=== PATIENT | female | born 1970 | race Caucasian/White ===

== ENCOUNTER → 2017-06-26 | Outpatient (CLI) | payer OTHER | LOC: M OUTALCOH 08:01 | DX: F10.20 Alcohol dependence, uncomplicated (principal) ==

== ENCOUNTER 2017-07-05 14:47 | Outpatient (RCR) | payer OTHER | END 2017-07-24 | LOC: M OUTALCOH 07-23 16:00 | DX: F10.20 Alcohol dependence, uncomplicated (principal) ==

== ENCOUNTER 2017-07-25 14:21 | Outpatient (RCR) | payer OTHER | END 2017-08-24 | LOC: M OUTALCOH 07-30 16:00 | DX: F10.20 Alcohol dependence, uncomplicated (principal) | CPT/HCPCS: 90834 ==

== ENCOUNTER 2017-08-27 16:00 | Outpatient (RCR) | payer OTHER | END 2017-09-23 | LOC: M OUTALCOH 16:00 | DX: F10.20 Alcohol dependence, uncomplicated (principal) ==

== ENCOUNTER 2017-09-30 15:54 | Outpatient (RCR) | payer OTHER | END 2017-10-24 | LOC: M OUTALCOH 10-07 16:00 | DX: F10.20 Alcohol dependence, uncomplicated (principal) ==

== ENCOUNTER 2017-11-04 11:22 | Outpatient (RCR) | payer OTHER | END 2017-11-23 | LOC: M OUTALCOH 11-11 16:00 | DX: F10.20 Alcohol dependence, uncomplicated (principal) | CPT/HCPCS: 90834 ==

== ENCOUNTER → 2020-03-28 | Outpatient (CLI) | payer OTHER ==
[~2020-03-28] MED LIST: LEVO25TABR PO; MELO7.5T3 PO; MULTLIQ7 PO
[2020-03-28 13:06] LABS: HEMATOCRIT 33.3 % (36.0-47.0); HEMOGLOBIN 9.9 g/dl (12.0-15.5); MEAN CORPUSCULAR HEMOGLOBIN 25.6 pg (27.0-33.0); MEAN CORPUSCULAR HGB CONC 29.7 g/dl (32.0-36.5); MEAN CORPUSCULAR VOLUME 86.3 fl (80.0-96.0); PLATELET COUNT, AUTOMATED 263 10^3/uL (150-450); RED BLOOD COUNT 3.86 10^6/uL (4.00-5.40); WHITE BLOOD COUNT 4.8 10^3/uL (4.0-10.0)
[2020-03-28 18:11] LABS: ALBUMIN 3.6 GM/DL (3.2-5.2); ALT/SGPT 19 U/L (12-78); BILIRUBIN,TOTAL 0.5 MG/DL (0.2-1.0); BLOOD UREA NITROGEN 8 MG/DL (7-18); CALCIUM LEVEL 8.3 MG/DL (8.5-10.1); CARBON DIOXIDE LEVEL 27 MEQ/L (21-32); CHLORIDE LEVEL 108 MEQ/L (98-107); CREATININE FOR GFR 0.59 MG/DL (0.55-1.30); GLOMERULAR FILTRATION RATE > 60.0 (>58); GLUCOSE, FASTING 87 MG/DL (70-100); POTASSIUM SERUM 4.5 MEQ/L (3.5-5.1); SODIUM LEVEL 139 MEQ/L (136-145)
== END ==
LOC: M PLALAB 10:03
PROVIDERS: ATTEND Internal Medicine
DX: E03.9 Hypothyroidism, unspecified (principal)

== ENCOUNTER → 2022-05-30 | Outpatient (CLI) | payer OTHER ==
[~2022-05-30] MED LIST changes: +LEVO2TA PO; +MELO15TA28 PO; +SYNT25TA PO
[2022-05-30 10:46] LABS: BASO % 0.3 % (0.0-1.0); EOS # 0.1 10^3/uL (0.0-0.5); HEMATOCRIT 41.7 % (36.0-47.0); HEMOGLOBIN 13.7 g/dl (12.0-15.5); LYMPH # 1.1 10^3/uL (1.5-5.0); LYMPH % 16.6 % (24.0-44.0); MEAN CORPUSCULAR HEMOGLOBIN 31.7 pg (27.0-33.0); MEAN CORPUSCULAR HGB CONC 32.9 g/dl (32.0-36.5); MEAN CORPUSCULAR VOLUME 96.5 fl (80.0-96.0); MONO # 0.5 10^3/uL (0.0-0.8); MONO % 7.5 % (2.0-8.0); NEUTROPHILS # 4.7 10^3/uL (1.5-8.5); NEUTROPHILS % 73.4 % (36.0-66.0); PLATELET COUNT, AUTOMATED 226 10^3/uL (150-450); RED BLOOD COUNT 4.32 10^6/uL (4.00-5.40); WHITE BLOOD COUNT 6.4 10^3/uL (4.0-10.0)
[2022-05-30 11:13] LABS: BLOOD UREA NITROGEN 15 MG/DL (9-23); CALCIUM LEVEL 8.9 MG/DL (8.5-10.1); CARBON DIOXIDE LEVEL 24 MMOL/L (20-31); CHLORIDE LEVEL 105 MMOL/L (98-107); CREATININE FOR GFR 0.56 MG/DL (0.55-1.30); GLOMERULAR FILTRATION RATE > 60.0 (>51); GLUCOSE, FASTING 97 MG/DL (60-100); POTASSIUM SERUM 4.5 MMOL/L (3.5-5.1); SODIUM LEVEL 140 MMOL/L (136-145)
== END ==
LOC: M EKG 10:02
PROVIDERS: ATTEND Podiatrist
DX: M76.61 Achilles tendinitis, right leg (principal)

== ENCOUNTER → 2022-06-11 | Outpatient (CLI) | payer OTHER | LOC: M LABSMTC 09:16 | PROVIDERS: ATTEND Anesthesiology | DX: Z01.812 Encounter for preprocedural laboratory examination (principal); Z11.52 Encounter for screening for COVID-19 ==

== ENCOUNTER 2022-06-15 11:19 | Day surgery (SDC) | payer OTHER ==
[~2022-06-15] VITALS: Ht 167.6 cm; Wt 121.3 kg
[~2022-06-15 11:19] MED LIST changes: +ceFAZolin SOD 1 GM in D5W MINI-BAG PLUS 50 ML IV ONE; +ceFAZolin SOD 2 GM in IV 1 EA IV ONE
[2022-06-15] MEDS ORDERED: GENTAMICIN SULF 80MG/2ML VIAL As Ordered ONE (12:25)
[2022-06-15] MEDS ORDERED: LIDOCAINE 2% MDV 20ML VIAL As Ordered ONE (12:25)
[2022-06-15] MEDS ORDERED: BUPIVACAINE HCL 0.5% 30ML VIAL As Ordered ONE (12:25)
[2022-06-15] MEDS ORDERED: LR 1,000 ML IV SCH ×2 (12:30→15:10)
[2022-06-15 12:47] LABS: HCG, SERUM QUALITATIVE NEGATIVE (NEGATIVE)
[2022-06-15] MEDS ORDERED: fentaNYL 100 MCG/2 ML INJECTION As Ordered ONE (13:43)
[2022-06-15] MEDS ORDERED: ROCURONIUM BROMIDE 50MG/5ML VIAL As Ordered ONE ×2 (13:43→13:44)
[2022-06-15] MEDS ORDERED: LIDOCAINE 2% 100MG/5ML SDV (FOR ANES.) As Ordered ONE (13:43)
[2022-06-15] MEDS ORDERED: propofoL 200 MG/20 ML VIAL As Ordered ONE (13:43)
[2022-06-15] MEDS ORDERED: ONDANSETRON 4MG 2ML VIAL As Ordered ONE (13:43)
[2022-06-15] MEDS ORDERED: MIDAZOLAM INJ 2MG/2ML VIAL As Ordered ONE (13:43)
[2022-06-15] MEDS ORDERED: SUGAMMADEX SODIUM 500 MG/5 ML VIAL (BRIDION) As Ordered ONE (13:44)
[2022-06-15] MEDS ORDERED: ACETAMINOPHEN 1000MG 100ML IV BAG As Ordered ONE (14:20)
[2022-06-15] MEDS ORDERED: MEPERIDINE INJ 25 MG/ML VIAL IV PRN (15:10)
[2022-06-15] MEDS ORDERED: PERCOCET 5MG/325MG TAB PO PRN (15:10)
[2022-06-15] MEDS ORDERED: fentaNYL 100 MCG/2 ML INJECTION IV PRN (15:10)
[2022-06-15] MEDS ORDERED: HYDROMORPHONE HCL 0.5 MG/ 0.5 ML SYRINGE IV PRN ×2 (15:10→15:15)
[2022-06-15] MEDS ORDERED: ONDANSETRON 4MG 2ML VIAL IV PRN (15:10)
[2022-06-15 16:55] VITALS: BP 173/81
== END 2022-06-15 17:00 | disposition home or self-care (01) ==
LOC: M SDC 11:19
PROVIDERS: ATTEND Podiatrist
DX: M77.31 Calcaneal spur, right foot (principal); M76.61 Achilles tendinitis, right leg; M79.671 Pain in right foot; E05.00 Thyrotoxicosis with diffuse goiter without thyrotoxic crisis or storm; E03.9 Hypothyroidism, unspecified; Z79.899 Other long term (current) drug therapy
CPT/HCPCS: 28119; 36415; 73650; 84703; 88300; C1713; J1100; J2405

== ENCOUNTER → 2022-08-14 | Outpatient (REF) | payer OTHER ==
[~2022-08-14] MED LIST changes: -ceFAZolin SOD 1 GM in D5W MINI-BAG PLUS 50 ML IV ONE; -ceFAZolin SOD 2 GM in IV 1 EA IV ONE
[2022-08-14 18:55] LABS: BASO % 0.4 % (0.0-1.0); EOS # 0.3 10^3/uL (0.0-0.5); EOS % 5.3 % (0.0-3.0); HEMATOCRIT 40.2 % (36.0-47.0); HEMOGLOBIN 13.4 g/dl (12.0-15.5); LYMPH # 1.4 10^3/uL (1.5-5.0); LYMPH % 26.7 % (24.0-44.0); MEAN CORPUSCULAR HEMOGLOBIN 32.8 pg (27.0-33.0); MEAN CORPUSCULAR HGB CONC 33.3 g/dl (32.0-36.5); MEAN CORPUSCULAR VOLUME 98.5 fl (80.0-96.0); MONO # 0.3 10^3/uL (0.0-0.8); MONO % 6.1 % (2.0-8.0); NEUTROPHILS # 3.1 10^3/uL (1.5-8.5); NEUTROPHILS % 61.3 % (36.0-66.0); PLATELET COUNT, AUTOMATED 195 10^3/uL (150-450); RED BLOOD COUNT 4.08 10^6/uL (4.00-5.40); WHITE BLOOD COUNT 5.1 10^3/uL (4.0-10.0)
[2022-08-14 20:22] LABS: ALBUMIN 3.7 G/DL (3.2-5.2); ALKALINE PHOSPHATASE 67 U/L (46-116); ALT/SGPT 25 U/L (7.0-40); AST/SGOT 26 U/L (<34); BILIRUBIN,TOTAL 0.5 MG/DL (0.3-1.2); BLOOD UREA NITROGEN 9 MG/DL (9-23); CALCIUM LEVEL 8.4 MG/DL (8.5-10.1); CARBON DIOXIDE LEVEL 26 MMOL/L (20-31); CHLORIDE LEVEL 107 MMOL/L (98-107); CHOLESTEROL LEVEL 155 MG/DL (<200); CHOLESTEROL RISK RATIO 3.43 (<5); CREATININE FOR GFR 0.49 MG/DL (0.55-1.30); GLOMERULAR FILTRATION RATE > 60.0 (>51); GLUCOSE, FASTING 87 MG/DL (60-100); HDL CHOLESTEROL 45.1 MG/DL (>40); LDL CHOLESTEROL 96.5 MG/DL (<100); NON-HDL-C 109.9 MG/DL; POTASSIUM SERUM 4.7 MMOL/L (3.5-5.1); SODIUM LEVEL 140 MMOL/L (136-145); TOTAL PROTEIN 6.8 G/DL (5.7-8.2); TRIGLYCERIDES LEVEL 67 MG/DL (<150)
[2022-08-14 20:24] LABS: FOLATE 18.21 NG/ML (>5.4); FREE T4 1.46 NG/DL (0.89-1.76); THYROID STIMULATING HORMONE 0.865 uIU/ML (0.55-4.78)
== END ==
LOC: M SFHCCLAY 10:01
PROVIDERS: ATTEND Family Medicine
DX: E55.9 Vitamin D deficiency, unspecified (principal); E89.0 Postprocedural hypothyroidism; R03.0 Elevated blood-pressure reading, without diagnosis of hypertension; Z13.220 Encounter for screening for lipoid disorders; Z98.84 Bariatric surgery status

== ENCOUNTER → 2023-03-29 | Outpatient (REF) | payer OTHER ==
[2023-03-29 18:04] LABS: ALBUMIN 3.7 G/DL (3.2-5.2); ALKALINE PHOSPHATASE 80 U/L (46-116); ALT/SGPT 24 U/L (7.0-40); AST/SGOT 19 U/L (<34); BILIRUBIN,TOTAL 0.7 MG/DL (0.3-1.2); BLOOD UREA NITROGEN 12 MG/DL (9-23); CALCIUM LEVEL 9.1 MG/DL (8.5-10.1); CARBON DIOXIDE LEVEL 29 MMOL/L (20-31); CHLORIDE LEVEL 103 MMOL/L (98-107); CREATININE FOR GFR 0.53 MG/DL (0.55-1.30); GLOMERULAR FILTRATION RATE > 60.0 (>51); GLUCOSE, FASTING 95 MG/DL (60-100); POTASSIUM SERUM 4.3 MMOL/L (3.5-5.1); SODIUM LEVEL 139 MMOL/L (136-145); TOTAL PROTEIN 7.1 G/DL (5.7-8.2)
[2023-03-29 18:08] LABS: FREE T4 1.34 NG/DL (0.89-1.76); THYROID STIMULATING HORMONE 2.373 uIU/ML (0.55-4.78)
== END ==
LOC: M SFHCCLAY 11:39
PROVIDERS: ATTEND Family Medicine
DX: E89.0 Postprocedural hypothyroidism (principal); R03.0 Elevated blood-pressure reading, without diagnosis of hypertension; E55.9 Vitamin D deficiency, unspecified

== ENCOUNTER → 2023-07-01 | Outpatient (REF) | payer OTHER ==
[2023-07-01 11:59] LABS: HEMATOCRIT 38.6 % (36.0-47.0); HEMOGLOBIN 12.9 g/dl (12.0-15.5); MEAN CORPUSCULAR HEMOGLOBIN 32.4 pg (27.0-33.0); MEAN CORPUSCULAR HGB CONC 33.4 g/dl (32.0-36.5); PLATELET COUNT, AUTOMATED 212 10^3/uL (150-450); RED BLOOD COUNT 3.98 10^6/uL (4.00-5.40); WHITE BLOOD COUNT 4.1 10^3/uL (4.0-10.0)
[2023-07-01 12:38] LABS: ALBUMIN 3.4 G/DL (3.2-5.2); ALKALINE PHOSPHATASE 68 U/L (46-116); ALT/SGPT 19 U/L (7.0-40); AST/SGOT 16 U/L (<34); BILIRUBIN,TOTAL 0.7 MG/DL (0.3-1.2); BLOOD UREA NITROGEN 13 MG/DL (9-23); CALCIUM LEVEL 8.8 MG/DL (8.5-10.1); CARBON DIOXIDE LEVEL 27 MMOL/L (20-31); CHLORIDE LEVEL 103 MMOL/L (98-107); CHOLESTEROL LEVEL 205 MG/DL (<200); CHOLESTEROL RISK RATIO 3.77 (<5); CREATININE FOR GFR 0.55 MG/DL (0.55-1.30); FREE T4 1.59 NG/DL (0.89-1.76); GLOMERULAR FILTRATION RATE > 60.0 (>51); GLUCOSE, FASTING 110 MG/DL (60-100); HDL CHOLESTEROL 54.3 MG/DL (>40); IRON (FE) 138 UG/DL (50-170); LDL CHOLESTEROL 136.5 MG/DL (<100); NON-HDL-C 150.7 MG/DL; POTASSIUM SERUM 4.4 MMOL/L (3.5-5.1); SODIUM LEVEL 137 MMOL/L (136-145); THYROID STIMULATING HORMONE 0.829 uIU/ML (0.55-4.78); TOTAL PROTEIN 7.1 G/DL (5.7-8.2); TRIGLYCERIDES LEVEL 71 MG/DL (<150)
== END ==
LOC: M SFHCCLAY 09:01
PROVIDERS: ATTEND Family Medicine
DX: E55.9 Vitamin D deficiency, unspecified (principal); E78.2 Mixed hyperlipidemia; E89.0 Postprocedural hypothyroidism; Z98.84 Bariatric surgery status

== ENCOUNTER → 2023-10-28 | Outpatient (REF) | payer OTHER ==
[2023-10-28 19:18] LABS: ALBUMIN 3.3 G/DL (3.2-5.2); ALKALINE PHOSPHATASE 63 U/L (46-116); ALT/SGPT 29 U/L (7.0-40); AST/SGOT 22 U/L (<34); BILIRUBIN,TOTAL 0.6 MG/DL (0.3-1.2); BLOOD UREA NITROGEN 17 MG/DL (9-23); CALCIUM LEVEL 8.7 MG/DL (8.5-10.1); CARBON DIOXIDE LEVEL 29 MMOL/L (20-31); CHLORIDE LEVEL 104 MMOL/L (98-107); CREATININE FOR GFR 0.64 MG/DL (0.55-1.30); GLOMERULAR FILTRATION RATE > 60.0 (>51); GLUCOSE, FASTING 111 MG/DL (60-100); IRON (FE) 73 UG/DL (50-170); POTASSIUM SERUM 4.3 MMOL/L (3.5-5.1); SODIUM LEVEL 138 MMOL/L (136-145); TOTAL PROTEIN 6.5 G/DL (5.7-8.2)
[2023-10-28 19:19] LABS: FREE T4 1.21 NG/DL (0.89-1.76)
[2023-10-28 19:20] LABS: THYROID STIMULATING HORMONE 0.801 uIU/ML (0.55-4.78)
== END ==
LOC: M SFHCCLAY 10:18
PROVIDERS: ATTEND Family Medicine
DX: E55.9 Vitamin D deficiency, unspecified (principal); E89.0 Postprocedural hypothyroidism; Z98.84 Bariatric surgery status; I10 Essential (primary) hypertension